=== PATIENT | male | born 1960 | race Caucasian/White ===

== ENCOUNTER 2023-05-15 21:40 | Emergency (ER) | payer SELFPAY ==
[~2023-05-15] VITALS: Ht 172.7 cm; Wt 86.2 kg
[2023-05-15 21:43] VITALS: BP 130/76; PULSE 88; RESP 15; TEMP 97.5; O2SAT 99
--- NOTE | 2023-05-15 21:55 | NUR ---
Patient received on chair sitting and awake. Alert and oriented x4. No acute distress. No complaints of pain or discomfort. Respirations even and unlabored. Accompanied by [place] [employer] Officer Karina Del Rio number [id number].
--- NOTE | 2023-05-15 22:00 | NUR ---
Blood sugar 334 mg/dl. ER MD seen the patient.
[2023-05-15] MEDS ORDERED: NACL 0.9% 2,000 ML IV ONE (22:05)
[2023-05-15 22:52] VITALS: BP 136/68; PULSE 90; RESP 19; TEMP 97.9; O2SAT 99
--- NOTE | 2023-05-15 22:52 | NUR ---
Patient discharged with v/s stable. Written and verbal after care instructions given and explained. Patient verbalized understanding. Ambulatory with steady gait. All questions addressed prior to discharge. Advised to follow up with PMD.
== END 2023-05-15 22:52 | disposition home or self-care (01) ==
LOC: MED 21:40
DX: R73.9 Hyperglycemia, unspecified (principal); F03.90 Unspecified dementia, unspecified severity, without behavioral disturbance, psychotic disturbance, mood disturbance, and anxiety; Z72.89 Other problems related to lifestyle; V49.88XA Car occupant (driver) (passenger) injured in other specified transport accidents, initial encounter; Y93.89 Activity, other specified; Y92.89 Other specified places as the place of occurrence of the external cause; Y99.8 Other external cause status
CPT/HCPCS: 96360; 99283; J7030